=== PATIENT | female | born 1995 | race Caucasian/White ===

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

== ENCOUNTER → 2017-03-30 | Outpatient (CLI) | payer OTHER ==
[~2017-03-30] MED LIST changes: +ADVI200C5 PO; +BACT800T5 PO; +LEVO25TA5 PO; +ONDA4TAB6 PO; +PROZ20CA11 PO
[2017-03-30 14:19] LABS: BASO # 0.1 K/mm3 (0.0-0.2); BASO % 0.9 % (0.0-1.0); EOS % 0.4 % (0.0-3.0); LARGE UNSTAINED CELL # 0.1 K/mm3 (0.0-0.4); LARGE UNSTAINED CELL % 1.1 % (0.0-4.0); LYMPH # 1.8 K/mm3 (1.5-6.5); LYMPH % 15.7 % (24.0-44.0); MEAN CORPUSCULAR HEMOGLOBIN 29.2 pg (27.0-33.0); MEAN CORPUSCULAR HGB CONC 34.2 g/dl (32.0-36.5); MEAN CORPUSCULAR VOLUME 85.5 fl (80.0-96.0); MONO # 0.4 K/mm3 (0.0-0.8); NEUTROPHILS # 8.4 K/mm3 (1.8-7.7); NEUTROPHILS % 77.7 % (36.0-66.0); PLATELET COUNT, AUTOMATED 270 k/mm3 (150-450); RED CELL DISTRIBUTION WIDTH 13.9 % (11.5-14.5); WHITE BLOOD COUNT 10.8 K/mm3 (4.0-10.0)
[2017-03-31 11:02] LABS: HBsAg Prenatal NEGATIVE (NEGATIVE)
== END ==
LOC: M SMT 09:53
PROVIDERS: ATTEND Advanced Practice Midwife
DX: Z36 Encounter for antenatal screening of mother (principal); Z3A.00 Weeks of gestation of pregnancy not specified

== ENCOUNTER → 2017-05-22 | Outpatient (CLI) | payer OTHER ==
--- NOTE | 2017-05-23 02:11 | REP ---
Clinical: Anatomical evaluation. Comparison: None . Findings: Examination demonstrates a single live intrauterine in breech presentation. motion is identified by technologist. Placenta is noted anteriorly and grade zero without evidence for placenta previa or abruption. Amniotic fluid volume is normal. Cervix measures 4.7 cm in length and appears closed. No evidence for nuchal cord. Gestational age by LMP 18 weeks 4 days with ROSI 10/19/2017 . Gestational age by current measurements 17 weeks 3 days with ROSI 10/27/2017 . FHR equals 139 beats per minute. BPD 3.8 cm 17 weeks 4 days HC 14.5 cm 17 weeks 5 days AC 11.3 cm 17 weeks 1 day FL 2.3 cm 17 weeks 0 days HL 2.6 cm 18 weeks 1 day HC/AC ratio 1.28 Estimated weight 182 grams (<3% based on age by LMP). Anatomical assessment demonstrates normal structures including choroid plexus, cavum, facial features, lungs, diaphragm, stomach, and kidneys/bladder. Limited evaluation of the cranium, posterior fossa, heart/ventricular outflow tracts, three-vessel cord/insertion, spine, extremities. Impression: Single live intrauterine in breech presentation. Estimated weight is less than expected based on age by LMP. Anatomical limitations as described above are noted. Follow-up examination at 19-21 weeks is recommended. Signed by Gibran Carpenter MD 05/23/2017 02:03 A
== END ==
LOC: M RAD 13:32
PROVIDERS: ATTEND Specialist
DX: Z36.2 Encounter for other antenatal screening follow-up (principal)

== ENCOUNTER 2017-05-29 14:22 | Emergency (ER) | payer OTHER ==
[~2017-05-29] VITALS: Ht 172.7 cm; Wt 109.1 kg
[~2017-05-29 14:22] MED LIST changes: -BACT800T5 PO; -ONDA4TAB6 PO
[2017-05-29 14:23] VITALS: BP 138/86
[2017-05-29] MEDS ORDERED: BACT800T5 PO (17:34)
[2017-05-29] MEDS ORDERED: ONDA4TAB6 PO (17:36)
== END 2017-05-29 14:36 | disposition admitted as inpatient to this hospital (09) ==
LOC: M ED 14:22
DX: O21.9 Vomiting of pregnancy, unspecified (principal)

== ENCOUNTER 2017-05-29 15:07 | Emergency (ER) | payer OTHER ==
[~2017-05-29] VITALS: Ht 172.7 cm; Wt 109.1 kg
[2017-05-29 15:16] VITALS: BP 138/92
[2017-05-29] MEDS ORDERED: BACT800T5 PO (17:34)
[2017-05-29] MEDS ORDERED: ONDA4TAB6 PO (17:36)
[2017-05-29] MEDS: ONDANSETRON 4 MG TAB (S0181) PO ONE (17:51)
[2017-05-29] MEDS: BACTRIM 160MG/800MG DS TAB PO ONE (17:51)
--- NOTE | 2017-05-30 05:44 | ED PDOC ---
Post-Departure Follow-Up I spoke to Karol ED nurse and asked her to call the patient and instruct her the prescription for Bactrim DS is to be discontinued and, if it has been filled, discarded. A prescription for nitrofurantoin will be started instead. [facility] May 30, 2017 05:44
--- NOTE | 2017-05-30 08:40 | ED PDOC ---
Post-Departure Follow-Up I contacted [facility] and asked the pharmacist to d/c the rx for Bactrim DS and sheconfirmed the order is cancelled. I spoke to the patient via telephone to advise her that the rx for Bactrim was discontinuedand replacedw/nitrofurantoin because Bactrim is not the best choice for UTI in a woman. Patient she us feeling OK and agreed to call Dr. Barreto office today for follow up. I then spoke to Dr. Shen who indicated the dose of Bactrim DS should not be an issue, dont sweat it. Amelie Arnold PA-C May 30, 2017 08:39
== END 2017-05-29 17:55 | disposition home or self-care (01) ==
LOC: M ED 15:07
DX: O23.42 Unspecified infection of urinary tract in pregnancy, second trimester (principal); Z3A.19 19 weeks gestation of pregnancy

== ENCOUNTER → 2017-05-31 | Outpatient (REF) | payer OTHER ==
[~2017-05-31] MED LIST changes: +BACT800T5 PO; +ONDA4TAB6 PO
== END ==
LOC: M LAB REF 15:53
PROVIDERS: ATTEND Emergency Medicine
DX: R19.7 Diarrhea, unspecified (principal)

== ENCOUNTER → 2017-06-09 | Outpatient (CLI) | payer OTHER ==
--- NOTE | 2017-06-09 11:49 | REP ---
OBSTETRIC SONOGRAPHY: HISTORY: Supervision of for anatomy. FINDINGS: Scanning through the gravid uterus demonstrates a viable single intrauterine gestation in a cephalic lie. motion is observed and heart rate is recorder 163 beats per minute. An anterior grade 0 placenta is seen without evidence of previa or abruption. Amniotic fluid is subjectively normal. Closed cervical length is 3.7 cm viewed transabdominally. No extrauterine abnormality is observed. There has been appropriate interval growth. No anomaly is seen. The following anatomic structures are less than optimally seen due to position: Facial profile, four-chamber heart and right and left ventricular outflow tract views. The following additional anatomic structures are identified and felt to be sonographically unremarkable: cranium, choroid plexus, cavum, cerebellum and posterior fossa, lungs, diaphragm, left-sided stomach, abdominal wall cord insertion, three-vessel umbilical cord, kidneys and bladder, spine, upper and lower extremities. Biometry Chart: BPD 4.7 cm = 20 weeks 1 day HC 17.9 cm = 20 weeks 2 days AC 15.3 cm = 20 weeks 3 days FL 3.3 cm = 20 weeks 3 days HL 3.2 cm = 20 weeks 4 days HC/AC ratio normal 1.17. Cephalic index normal 0.72. Estimated weight 354 grams, 0 pounds 12 ounces, 26th percentile for 21 weeks 1 day. IMPRESSION: Viable single intrauterine gestation at 20 weeks 3 days by today's composite sonographic criteria. Expected gestational age estimate based on prior sonography is 20 weeks 0 days. ROSI by prior sonography October 27, 2017. There is appropriate interval growth. Cardiac views and facial profile views less than optimally seen today. Signed by Tello Holloway MD 06/09/2017 02:55 P
== END ==
LOC: M RAD 09:11
PROVIDERS: ATTEND Specialist
DX: Z36.89 Encounter for other specified antenatal screening (principal); Z3A.20 20 weeks gestation of pregnancy

== ENCOUNTER → 2017-07-05 | Outpatient (CLI) | payer OTHER ==
--- NOTE | 2017-07-05 15:07 | REP ---
OB ULTRASOUND: Real-time sonographic evaluation of the gravid uterus is performed. There is a single intrauterine gestation with the estimated gestational age 24 weeks 6 days with EDC 10/19/2017. Today's measurements indicate somewhat less than expected growth. Biometry and Growth: BPD 56 mm = 23 weeks 0 days, less than 5th percentile HC 212 mm = 23 weeks 2 days, less than 5th percentile AC 183 mm = 23 weeks 1 day, 11th percentile FL 41 mm = 23 weeks 2 days, 11th percentile HC/AC ratio 1.16 within normal range. Estimated weight 572 grams, less than 3rd percentile. SEEN/GROSSLY UNREMARKABLE Lateral ventricles Yes Posterior fossa Yes Upper lip Yes Four-chamber heart Yes LVOT Yes RVOT Yes Stomach Yes Cord insertion Yes Three vessel cord Yes Kidneys Yes Bladder Yes Spine No Cervical length: Closed and measures 4.2 cm in length. heart rate: 141 beats per minute. position: Breech. Placenta: Anterior and grade 0 with no previa or abruption. Amniotic fluid: Within normal limits. Signed by Nemesio Shaikh MD 07/05/2017 03:19 P
== END ==
LOC: M RAD 12:19
PROVIDERS: ATTEND Specialist
DX: Z34.82 Encounter for supervision of other normal pregnancy, second trimester (principal)

== ENCOUNTER → 2017-07-25 | Outpatient (CLI) | payer OTHER ==
[2017-07-25 17:58] LABS: BASO # 0.1 10^3/uL (0.0-0.2); BASO % 0.6 % (0.0-1.0); EOS # 0.1 10^3/uL (0.0-0.50); EOS % 0.4 % (0.0-3.0); IMMATURE GRANULOCYTE % 0.9 % (0-0); LYMPH # 2.1 10^3/uL (1.5-6.5); LYMPH % 16.3 % (24.0-44.0); MEAN CORPUSCULAR HGB CONC 32.5 g/dl (32.0-36.5); MEAN CORPUSCULAR VOLUME 89.3 fl (80.0-96.0); MONO # 0.7 10^3/uL (0.0-0.8); MONO % 5.7 % (0.0-5.0); NEUTROPHILS # 9.8 10^3/uL (1.8-7.7); NEUTROPHILS % 76.1 % (36.0-66.0); PLATELET COUNT, AUTOMATED 262 10^3/uL (150-450); RED CELL DISTRIBUTION WIDTH 13.7 % (11.5-14.5); WHITE BLOOD COUNT 12.9 10^3/uL (4.0-10.0)
== END ==
LOC: M SMT 11:07
PROVIDERS: ATTEND Specialist
DX: Z34.82 Encounter for supervision of other normal pregnancy, second trimester (principal)

== ENCOUNTER → 2017-08-03 | Outpatient (CLI) | payer OTHER ==
--- NOTE | 2017-08-03 17:08 | REP ---
Obstetric sonography: History: Size less than dates. growth study. Comparison exam July 05, 2017. Findings: Scanning through the gravid uterus demonstrates a viable single intrauterine gestation in a cephalic lie. heart rate is recorded at 136 beats per minute. An anterior placenta is seen without evidence of previa. Closed cervical length measured transabdominally is 3.4 cm. Amniotic fluid is subjectively normal. YVONNE is normal at 13.7 cm. The S/D ratio in the umbilical cord artery by Doppler is normal at 3.45. No anomaly is seen. The following anatomic structures are again identified and felt to be unremarkable: cranium, choroid plexus, cavum, cerebellum and posterior fossa, face and profile, lungs, four-chamber heart with left and right ventricular outflow tract views, diaphragm, left-sided stomach, three-vessel cord, kidneys and bladder, upper extremities. Biometry chart: BPD 7.1 cm = 28 weeks 3 days HC 26.3 cm = 28 weeks 4 days AC 23.3 cm = 27 weeks 4 days FL 5.1 cm = 27 weeks 3 days CD 3.3 cm = 28 weeks 0 days HC/AC ratio normal 1.1. Cephalic index normal 0.75. Estimated weight 1109 grams, 2 pounds 7 ounces, 13th percentile for 29 weeks 0 days. Impression: Viable single intrauterine gestation at 27 weeks 4 days by today's composite sonographic criteria. Expected gestational age estimate based on prior sonography is 29 weeks 0 days. ROSI by prior sonography October 19, 2017. Signed by Tello Holloway MD 08/03/2017 05:13 P
== END ==
LOC: M SMT 08:21
PROVIDERS: ATTEND Specialist
DX: O36.59 Maternal care for other known or suspected poor fetal growth (principal); Z3A.27 27 weeks gestation of pregnancy

== ENCOUNTER → 2017-09-06 | Outpatient (CLI) | payer MEDICAID | LOC: M SMT 11:10 | DX: O36.5933 Maternal care for other known or suspected poor fetal growth, third trimester, fetus 3 (principal); Z3A.00 Weeks of gestation of pregnancy not specified | CPT/HCPCS: 76816 ==

== ENCOUNTER 2017-09-23 19:21 | Inpatient (IN) | payer OTHER, MEDICAID ==
[2017-09-23] MEDS ORDERED: LR 1,000 ML IV (22:51)
[2017-09-23] MEDS: LACTATED RINGER'S 1000 ML IV (23:30)
[2017-09-23 23:31] LABS: HEMATOCRIT 37.2 % (36.0-47.0); HEMOGLOBIN 12.1 g/dl (12.0-16.0); MEAN CORPUSCULAR HEMOGLOBIN 27.1 pg (27.0-33.0); MEAN CORPUSCULAR HGB CONC 32.5 g/dl (32.0-36.5); MEAN CORPUSCULAR VOLUME 83.2 fl (80.0-96.0); PLATELET COUNT, AUTOMATED 235 10^3/uL (150-450); RED BLOOD COUNT 4.47 10^6/uL (4.00-5.40); RED CELL DISTRIBUTION WIDTH 13.4 % (11.5-14.5); WHITE BLOOD COUNT 14.3 10^3/uL (4.0-10.0)
[2017-09-24] MEDS: BICITRA 30ML SOLN UDC PO
[2017-09-24] MEDS ORDERED: OXYTOCIN INJ 10 UNITS/ML VIAL (J2590) As Ordered ×2 (00:21)
[2017-09-24] MEDS ORDERED: MORPHINE PRES-FREE INJ 10 MG/10 ML VIAL (J2274) As Ordered (00:21)
[2017-09-24] MEDS ORDERED: ONDANSETRON 4MG/2ML VIAL (J2405) IV ×2 (00:42→02:15)
[2017-09-24] MEDS ORDERED: NALOXONE INJ 0.4 MG/1 ML VIAL (J2310) IV ×2 (00:42)
[2017-09-24] MEDS ORDERED: METOCLOPRAMIDE INJ 10MG/2ML VIAL (J2765) IV (00:42)
[2017-09-24] MEDS ORDERED: ONDANSETRON 4MG/2ML VIAL (J2405) As Ordered ×2 (00:47→01:10)
[2017-09-24] MEDS ORDERED: KETOROLAC 60 MG/2 ML VIAL (J1885) As Ordered (01:20)
[2017-09-24] MEDS ORDERED: fentaNYL 100 MCG/2 ML INJECTION (J3010) As Ordered (01:26)
[2017-09-24] MEDS: LR 1,000 ML IV ×3 (02:14→09:15)
[2017-09-24] MEDS ORDERED: MEASLES,MUMPS,RUBELLA VACCINE INJ (MMR-II) (90707) SC (02:15)
[2017-09-24] MEDS ORDERED: RHOGAM 300 MCG (1500 IU) INJ (J2790) IM (02:15)
[2017-09-24] MEDS ORDERED: MOM 30ML SUSPENSION UDC PO (02:15)
[2017-09-24] MEDS: OXYTOCIN DRIP 30 UNITS in APPROPRIATE DILUENT 1 EA IV (02:15)
[2017-09-24] MEDS ORDERED: diphenhydrAMINE INJ 50MG/ML VIAL (J1200) As Ordered (02:23)
[2017-09-24] MEDS ORDERED: fentaNYL 100 MCG/2 ML INJECTION (J3010) IV (02:30)
[2017-09-24] MEDS ORDERED: diphenhydrAMINE INJ 50MG/ML VIAL (J1200) IV (02:30)
[2017-09-24] MEDS ORDERED: NALBUPHINE HCL 10 MG/ML AMP (J2300) IV (02:30)
[2017-09-24] MEDS ORDERED: PERCOCET 5MG/325MG TAB PO (02:30)
[2017-09-24] MEDS ORDERED: ePHEDrine SULFATE 25 MG/5 ML(5MG/ML) SYRINGE As Ordered (02:56)
[2017-09-24] MEDS ORDERED: PHENYLephrine HCL 500 MCG/5 ML (100MCG/ML) SYRINGE (J2370) As Ordered (02:57)
[2017-09-24] MEDS: DOCUSATE SODIUM 100 MG CAP PO ×2 (07:43→20:32)
[2017-09-24] MEDS: KETOROLAC 30 MG/ML VIAL (J1885) IV ×3 (07:43→18:58)
[2017-09-24] MEDS: PRENATAL VITAMINS CHEWABLE TABLET PO (07:43)
[2017-09-24] MEDS: NALBUPHINE HCL 10 MG/ML AMP (J2300) IV (08:07)
[2017-09-25] MEDS: KETOROLAC 30 MG/ML VIAL (J1885) IV (02:01)
[2017-09-25] MEDS: PERCOCET 5MG/325MG TAB PO ×3 (02:38→20:08)
[2017-09-25 06:41] LABS: HEMATOCRIT 31.8 % (36.0-47.0); HEMOGLOBIN 10.2 g/dl (12.0-16.0); MEAN CORPUSCULAR HEMOGLOBIN 26.9 pg (27.0-33.0); MEAN CORPUSCULAR HGB CONC 32.1 g/dl (32.0-36.5); MEAN CORPUSCULAR VOLUME 83.9 fl (80.0-96.0); PLATELET COUNT, AUTOMATED 189 10^3/uL (150-450); RED BLOOD COUNT 3.79 10^6/uL (4.00-5.40); RED CELL DISTRIBUTION WIDTH 13.8 % (11.5-14.5); WHITE BLOOD COUNT 11.1 10^3/uL (4.0-10.0)
[2017-09-25] MEDS: DOCUSATE SODIUM 100 MG CAP PO ×2 (09:29→20:06)
[2017-09-25] MEDS: PRENATAL VITAMINS CHEWABLE TABLET PO (09:29)
[2017-09-25] MEDS: IBUPROFEN 800 MG TAB PO ×2 (09:30→18:29)
[2017-09-26] MEDS: IBUPROFEN 800 MG TAB PO ×2 (00:40→08:37)
[2017-09-26] MEDS: PRENATAL VITAMINS CHEWABLE TABLET PO (08:37)
[2017-09-26] MEDS: DOCUSATE SODIUM 100 MG CAP PO (08:37)
[2017-09-26] MEDS: PERCOCET 5MG/325MG TAB PO (16:04)
== END 2017-09-26 17:25 | disposition home or self-care (01) | DRG 540 ==
LOC: M LDO 19:21 → M OBS 09-24 03:34 → M LDI 22:27
PROVIDERS: Obstetrics & Gynecology
PROC: 10D00Z1 Extraction of Products of Conception, Low, Open Approach (ICD-10-PCS; principal; 2017-09-24 00:36)
PROC: 0UB70ZZ Excision of Bilateral Fallopian Tubes, Open Approach (ICD-10-PCS; 2017-09-24 00:36)
DX: O60.13X0 Preterm labor second trimester with preterm delivery third trimester, not applicable or unspecified (principal); Z3A.36 36 weeks gestation of pregnancy; O34.211 Maternal care for low transverse scar from previous cesarean delivery; Z37.0 Single live birth; Z30.2 Encounter for sterilization

== ENCOUNTER → 2018-03-11 | Outpatient (REF) | payer OTHER ==
[2018-03-12 00:09] LABS: CHLAMYDIA DNA AMPLIFICATION NEGATIVE (NEGATIVE); GC DNA AMPLIFICATION NEGATIVE (NEGATIVE)
== END ==
LOC: M LAB REF 21:16
DX: Z11.3 Encounter for screening for infections with a predominantly sexual mode of transmission (principal)

== ENCOUNTER 2018-04-10 22:03 | Emergency (ER) | payer OTHER ==
[2018-04-10] MEDS: ONDANSETRON 4MG/2ML VIAL (J2405) IV ×2 (23:22)
[2018-04-10] MEDS: NS 1,000 ML IV ×2 (23:22)
[2018-04-10] MEDS: MORPHINE 4 MG/ML 1ML VIAL/SYRINGE (J2270) IV ×2 (23:23)
[2018-04-10 23:35] LABS: BASO # 0.1 10^3/uL (0.0-0.2); BASO % 0.8 % (0.0-1.0); EOS % 0.4 % (0.0-3.0); HEMATOCRIT 40.9 % (36.0-47.0); HEMOGLOBIN 12.8 g/dl (12.0-15.5); IMMATURE GRANULOCYTE % 0.3 % (0-3.0); LYMPH # 2.7 10^3/uL (1.5-6.5); LYMPH % 29.5 % (24.0-44.0); MEAN CORPUSCULAR HEMOGLOBIN 25.2 pg (27.0-33.0); MEAN CORPUSCULAR HGB CONC 31.3 g/dl (32.0-36.5); MEAN CORPUSCULAR VOLUME 80.7 fl (80.0-96.0); MONO # 0.8 10^3/uL (0.0-0.8); MONO % 8.3 % (0.0-5.0); NEUTROPHILS # 5.6 10^3/uL (1.8-7.7); NEUTROPHILS % 60.7 % (36.0-66.0); PLATELET COUNT, AUTOMATED 292 10^3/uL (150-450); RED BLOOD COUNT 5.07 10^6/uL (4.00-5.40); RED CELL DISTRIBUTION WIDTH 14.5 % (11.5-14.5); WHITE BLOOD COUNT 9.2 10^3/uL (4.0-10.0)
[2018-04-10 23:37] LABS: CONTROL LINE UCG INT CTR LINE PRESENT; KETONE, URINE AUTO RFX NEGATIVE (NEGATIVE); LEUKOCYTE ESTERASE UR AUTO RFX NEGATIVE (NEGATIVE); MUCUS, URINE RFX SMALL (NEGATIVE); NITRITE, URINE AUTO RFX NEGATIVE (NEGATIVE); RBC, URINE AUTO RFX 3 /HPF (0-3); SPECIFIC GRAVITY UR AUTO RFX 1.029 (1.002-1.035); SQUAM EPITHELIAL CELL UR AURFX 4 /HPF (0-6); URINE PREG TEST NEGATIVE (NEGATIVE); WBC, URINE AUTO RFX 1 /HPF (0-3)
[2018-04-10 23:57] LABS: ALBUMIN 3.9 GM/DL (3.2-5.2); ALBUMIN/GLOBULIN RATIO 1.03 (1.00-1.93); ALKALINE PHOSPHATASE 79 U/L (45-117); ALT/SGPT 27 U/L (12-78); ANION GAP 11 MEQ/L (8-16); AST/SGOT 14 U/L (7-37); BILIRUBIN,DIRECT < 0.1 MG/DL (0.0-0.2); BILIRUBIN,TOTAL 0.3 MG/DL (0.2-1.0); BLOOD UREA NITROGEN 22 MG/DL (7-18); CARBON DIOXIDE LEVEL 26 MEQ/L (21-32); CHLORIDE LEVEL 107 MEQ/L (98-107); CREATININE FOR GFR 0.77 MG/DL (0.55-1.30); GLOMERULAR FILTRATION RATE > 60.0 (>60); GLUCOSE, FASTING 89 MG/DL (70-100); LIPASE 78 U/L (73-393); POTASSIUM SERUM 4.2 MEQ/L (3.5-5.1); SODIUM LEVEL 144 MEQ/L (136-145); TOTAL PROTEIN 7.7 GM/DL (6.4-8.2)
[2018-04-11] MEDS ORDERED: ISOVUE-370 76% 100ML VIAL (Q9967) As Ordered ×2 (00:06)
== END 2018-04-11 01:38 | disposition home or self-care (01) ==
LOC: M ED 22:03
DX: R10.9 Unspecified abdominal pain (principal); Z98.890 Other specified postprocedural states
CPT/HCPCS: J2270

== ENCOUNTER → 2018-05-25 | Outpatient (REF) | payer OTHER ==
[2018-05-25 22:14] LABS: APPEARANCE, URINE HAZY (CLEAR); BACTERIA, URINE AUTO 1+ (NEGATIVE); BILIRUBIN, URINE AUTO NEGATIVE (NEGATIVE); BLOOD, URINE BLOOD NEGATIVE (NEGATIVE); COLOR, URINE AMBER (YELLOW); GLUCOSE, URINE (UA) AUTO NEGATIVE (NEGATIVE); KETONE, URINE AUTO TRACE mg/dL (NEGATIVE); LEUKOCYTE ESTERASE, URINE AUTO NEGATIVE (NEGATIVE); MUCUS, URINE SMALL (NEGATIVE); NITRITE, URINE AUTO NEGATIVE (NEGATIVE); PROTEIN, URINE AUTO 1+ mg/dL (NEGATIVE); RBC, URINE AUTO 2 /HPF (0-3); SPECIFIC GRAVITY URINE AUTO 1.032 (1.002-1.035); SQUAMOUS EPITHELIAL CELL UR AU 8 /HPF (0-6); WBC, URINE AUTO 3 /HPF (0-3)
== END ==
LOC: M LAB REF 21:43
DX: N39.0 Urinary tract infection, site not specified (principal)
CPT/HCPCS: 81001

== ENCOUNTER 2018-09-24 13:10 | Inpatient (IN) | payer OTHER, SELFPAY ==
[~2018-09-24] VITALS: Ht 172.7 cm; Wt 123.7 kg
[~2018-09-24 13:10] MED LIST changes: +IBUP1TAB7 PO
[2018-09-24] MEDS ORDERED: HYDROXAZINE (13:26)
[2018-09-24 13:56] LABS: BASO # 0.1 10^3/uL (0.0-0.2); BASO % 0.9 % (0.0-1.0); EOS # 0.1 10^3/uL (0.0-0.50); EOS % 0.7 % (0.0-3.0); HEMATOCRIT 41.3 % (36.0-47.0); HEMOGLOBIN 13.2 g/dl (12.0-15.5); LYMPH # 2.3 10^3/uL (1.5-6.5); LYMPH % 30.4 % (24.0-44.0); MEAN CORPUSCULAR HEMOGLOBIN 26.8 pg (27.0-33.0); MEAN CORPUSCULAR VOLUME 83.8 fl (80.0-96.0); MONO # 0.6 10^3/uL (0.0-0.8); MONO % 7.8 % (0.0-5.0); NEUTROPHILS # 4.6 10^3/uL (1.8-7.7); NEUTROPHILS % 59.9 % (36.0-66.0); PLATELET COUNT, AUTOMATED 279 10^3/uL (150-450); RED BLOOD COUNT 4.93 10^6/uL (4.00-5.40); WHITE BLOOD COUNT 7.6 10^3/uL (4.0-10.0)
[2018-09-24 14:23] LABS: AMPHETAMINES LEVEL URINE NEGATIVE (NEGATIVE); BARBITURATES URINE NEGATIVE (NEGATIVE); BENZODIAZEPINES URINE NEGATIVE (NEGATIVE); CANNABINOIDS URINE POSITIVE (NEGATIVE); COCAINE METABOLITE URINE NEGATIVE (NEGATIVE); METHADONE URINE NEGATIVE (NEGATIVE); OPIATES URINE NEGATIVE (NEGATIVE); PHENCYCLIDINE URINE NEGATIVE (NEGATIVE)
[2018-09-24 14:33] LABS: HCG, SERUM QUALITATIVE NEGATIVE (NEGATIVE)
[2018-09-24 14:41] LABS: ALBUMIN 4.1 GM/DL (3.2-5.2); ALT/SGPT 31 U/L (12-78); BILIRUBIN,DIRECT < 0.1 MG/DL (0.0-0.2); BILIRUBIN,TOTAL 0.3 MG/DL (0.2-1.0); BLOOD UREA NITROGEN 16 MG/DL (7-18); CALCIUM LEVEL 8.5 MG/DL (8.5-10.1); CARBON DIOXIDE LEVEL 26 MEQ/L (21-32); CHLORIDE LEVEL 107 MEQ/L (98-107); CPK CREATINE PHOSPHOKINASE 89 U/L (26-192); CREATININE FOR GFR 0.66 MG/DL (0.55-1.30); GLOMERULAR FILTRATION RATE > 60.0 (>60); GLUCOSE, FASTING 84 MG/DL (70-100); POTASSIUM SERUM 4.2 MEQ/L (3.5-5.1); SALICYLATE LEVEL < 1.7 MG/DL (5.0-30.0); SODIUM LEVEL 140 MEQ/L (136-145); TOTAL PROTEIN 7.6 GM/DL (6.4-8.2)
[2018-09-24 14:42] LABS: ACETAMINOPHEN LEVEL < 2.0 UG/ML (10.0-30.0); ETHYL ALCOHOL (ETHANOL) < 0.003 % (0.000-0.010)
[2018-09-24] MEDS ORDERED: MAALOX 30 ML SUSP *UDC PO PRN (17:00)
[2018-09-24] MEDS ORDERED: MOM 30ML SUSPENSION UDC PO PRN (17:00)
[2018-09-24] MEDS ORDERED: ACETAMINOPHEN TAB 650MG DOSE (2X325MG) PO PRN (17:00)
[2018-09-24 21:18] VITALS: BP 139/78
[2018-09-24] MEDS: traZODone 50 MG TAB PO PRN (23:03)
[2018-09-25 06:00] VITALS: BP 108/69
[2018-09-25 06:36] VITALS: BP 108/69
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
[2018-09-25 18:00] VITALS: BP 141/75
--- NOTE | 2018-09-25 18:53 | ECGEPIP ---
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
[2018-09-25] MEDS: traZODone 50 MG TAB PO PRN (22:19)
[2018-09-26 06:34] VITALS: BP 125/69
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
[2018-09-26 18:00] VITALS: BP 146/82
[2018-09-26] MEDS: traZODone 50 MG TAB PO PRN (22:37)
[2018-09-27 06:40] VITALS: BP 112/57
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
[2018-09-27 18:00] VITALS: BP 153/67
[2018-09-28 06:00] VITALS: BP 137/86
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
[2018-09-28] MEDS ORDERED: ARIP5TA PO (09:07)
[2018-09-28] MEDS ORDERED: TRAZO50TA PO (09:07)
== END 2018-09-28 11:15 | disposition home or self-care (01) | DRG 753 ==
LOC: M ED 13:10 → M ED INP 16:48 → M PSY 21:06
PROVIDERS: ADMIT Psychiatry & Neurology Psychiatry; ATTEND Psychiatry & Neurology Psychiatry
DX: F39 Unspecified mood [affective] disorder (principal); F41.9 Anxiety disorder, unspecified; T43.592A Poisoning by other antipsychotics and neuroleptics, intentional self-harm, initial encounter; S61.512A Laceration without foreign body of left wrist, initial encounter; X78.1XXA Intentional self-harm by knife, initial encounter; Y92.009 Unspecified place in unspecified non-institutional (private) residence as the place of occurrence of the external cause; F60.3 Borderline personality disorder

== ENCOUNTER → 2018-11-27 | Outpatient (REF) | payer OTHER ==
[~2018-11-27] MED LIST changes: +ARIP1TAB6 PO; +HYDROXAZINE; +IBUP600T42 PO; -IBUP60TA PO; +TRAZO50TA PO
== END ==
LOC: M SFHCADAM 10:23
PROVIDERS: ATTEND Physician Assistant Medical
DX: F51.04 Psychophysiologic insomnia (principal); F31.32 Bipolar disorder, current episode depressed, moderate; E66.01 Morbid (severe) obesity due to excess calories

== ENCOUNTER → 2020-01-29 | Outpatient (REF) | payer OTHER ==
[~2020-01-29] MED LIST changes: +TRAZ1TAB10 PO; -TRAZO50TA PO
[2020-01-29 22:37] LABS: CHLAMYDIA DNA AMPLIFICATION NEGATIVE (NEGATIVE); GC DNA AMPLIFICATION POSITIVE (NEGATIVE)
== END ==
LOC: M LAB REF 21:02
PROVIDERS: ATTEND Physician Assistant Medical
DX: A64 Unspecified sexually transmitted disease (principal)

== ENCOUNTER → 2020-03-18 | Outpatient (REF) | payer OTHER ==
[~2020-03-18] MED LIST changes: +FLOM0.4C39 PO; +KETO10TAB PO; +MACR100C43 PO; +TRIA1OI
[2020-05-02 11:47] LABS: HEMOGLOBIN A1c 5.6 %
== END ==
LOC: M LABDRWAD 08:33
PROVIDERS: ATTEND Surgery
DX: Z86.39 Personal history of other endocrine, nutritional and metabolic disease (principal)

== ENCOUNTER 2020-05-21 10:35 | Emergency (ER) | payer OTHER ==
[~2020-05-21] VITALS: Ht 172.7 cm; Wt 127.7 kg
[~2020-05-21 10:35] MED LIST changes: -FLOM0.4C39 PO; -KETO10TAB PO; -MACR100C43 PO; -TRIA1OI
[2020-05-21] MEDS ORDERED: TRIA1OI (10:46)
[2020-05-21 11:09] LABS: BASO # 0.1 10^3/uL (0.0-0.2); BASO % 1.1 % (0.0-1.0); EOS % 0.7 % (0.0-3.0); HEMATOCRIT 43.3 % (36.0-47.0); HEMOGLOBIN 13.8 g/dl (12.0-15.5); LYMPH # 1.7 10^3/uL (1.5-5.0); MEAN CORPUSCULAR HEMOGLOBIN 27.3 pg (27.0-33.0); MEAN CORPUSCULAR HGB CONC 31.9 g/dl (32.0-36.5); MEAN CORPUSCULAR VOLUME 85.7 fl (80.0-96.0); MONO # 0.5 10^3/uL (0.0-0.8); NEUTROPHILS # 3.4 10^3/uL (1.5-8.5); NEUTROPHILS % 59.7 % (36.0-66.0); PLATELET COUNT, AUTOMATED 275 10^3/uL (150-450); RED BLOOD COUNT 5.05 10^6/uL (4.00-5.40); WHITE BLOOD COUNT 5.6 10^3/uL (4.0-10.0)
--- NOTE | 2020-05-21 11:47 | REPVR ---
PROCEDURE INFORMATION: Exam: CT Abdomen And Pelvis Without Contrast Exam date and time: 05/21/2020 10:51 AM Age: 25 years old Clinical indication: Abdominal pain; Additional info: Right lower quadrant pain TECHNIQUE: Imaging protocol: Computed tomography of the abdomen and pelvis without contrast. Radiation optimization: All CT scans at this facility use at least one of these dose optimization techniques: automated exposure control; mA and/or kV adjustment per patient size (includes targeted exams where dose is matched to clinical indication); or iterative reconstruction. COMPARISON: CT ABD/PEL W/IV CONTRAST ONLY 04/11/2018 12:05 AM FINDINGS: Liver: Normal. No mass. Gallbladder and bile ducts: Normal. No calcified stones. No ductal dilation. Pancreas: Normal. No ductal dilation. Spleen: Normal. No splenomegaly. Adrenals: Normal. No mass. Kidneys and ureters: There is moderate right-sided hydronephrosis. There is a 3 mm obstructing ureterovesical junction calculus. Underlying pyelonephritis cannot be excluded based on this exam. There are bilateral nonobstructing intrarenal calcifications. Stomach and bowel: Unremarkable. No obstruction. No mucosal thickening. Appendix: A normal appendix is identified. Intraperitoneal space: There is a small amount of free pelvic fluid. Vasculature: Unremarkable. No abdominal aortic aneurysm. Lymph nodes: Unremarkable. No enlarged lymph nodes. Urinary bladder: Unremarkable as visualized. Reproductive: Unremarkable as visualized. Bones/joints: Unremarkable. No acute fracture. Soft tissues: Unremarkable. IMPRESSION: There is moderate right-sided hydronephrosis. There is a 3 mm obstructing ureterovesical junction calculus. Underlying pyelonephritis cannot be excluded based on this exam. Electronically signed by: Lazaro Pathak On 05/21/2020 11:47:28 AM
[2020-05-21] MEDS ORDERED: FLOM0.4C39 PO (11:51)
[2020-05-21] MEDS ORDERED: KETO10TAB PO (11:51)
[2020-05-21] MEDS ORDERED: KETOROLAC 30 MG/ML 1ML VIAL IV ONE (12:00)
[2020-05-21] MEDS ORDERED: MACR100C43 PO (12:37)
[2020-05-21 12:56] VITALS: BP 129/74
== END 2020-05-21 13:01 | disposition home or self-care (01) ==
LOC: M ED 10:35 → EDBD 10:35 → M ED 13:01
DX: N20.1 Calculus of ureter (principal); F31.9 Bipolar disorder, unspecified; E66.9 Obesity, unspecified
CPT/HCPCS: 36415; 74176; 80047; 81001; 84702; 85025; 96374; 99284; J1885

== ENCOUNTER → 2020-06-05 | Outpatient (REF) | payer OTHER ==
[~2020-06-05] MED LIST changes: +FLOM0.4C39 PO; +KETO10TAB PO; +MACR100C43 PO; +TRIA1OI
[2020-06-05 18:53] LABS: APPEARANCE, URINE CLEAR (CLEAR); BACTERIA, URINE AUTO NEGATIVE (NEGATIVE); BILIRUBIN, URINE AUTO NEGATIVE (NEGATIVE); BLOOD, URINE BLOOD NEGATIVE (NEGATIVE); COLOR, URINE YELLOW (YELLOW); GLUCOSE, URINE (UA) AUTO NEGATIVE (NEGATIVE); KETONE, URINE AUTO NEGATIVE (NEGATIVE); LEUKOCYTE ESTERASE, URINE AUTO NEGATIVE (NEGATIVE); MUCUS, URINE SMALL (NEGATIVE); NITRITE, URINE AUTO NEGATIVE (NEGATIVE); PROTEIN, URINE AUTO NEGATIVE (NEGATIVE); RBC, URINE AUTO 1 /HPF (0-3); SPECIFIC GRAVITY URINE AUTO 1.019 (1.002-1.035); SQUAMOUS EPITHELIAL CELL UR AU 1 /HPF (0-6); UROBILINOGEN, URINE AUTO 0.2 mg/dL (0.0-2.0); WBC, URINE AUTO 1 /HPF (0-3)
== END ==
LOC: M SMT 17:24
PROVIDERS: ATTEND Nurse Practitioner Women's Health
DX: N13.2 Hydronephrosis with renal and ureteral calculous obstruction (principal)

== ENCOUNTER → 2020-10-06 | Outpatient (CLI) | payer OTHER ==
[2020-10-06 16:55] LABS: BASO # 0.1 10^3/uL (0.0-0.2); BASO % 1.1 % (0.0-1.0); EOS # 0.2 10^3/uL (0.0-0.5); EOS % 2.6 % (0.0-3.0); HEMATOCRIT 42.4 % (36.0-47.0); HEMOGLOBIN 13.5 g/dl (12.0-15.5); LYMPH # 2.4 10^3/uL (1.5-5.0); LYMPH % 39.2 % (24.0-44.0); MEAN CORPUSCULAR HEMOGLOBIN 27.7 pg (27.0-33.0); MEAN CORPUSCULAR HGB CONC 31.8 g/dl (32.0-36.5); MEAN CORPUSCULAR VOLUME 87.1 fl (80.0-96.0); MONO # 0.6 10^3/uL (0.0-0.8); NEUTROPHILS # 2.9 10^3/uL (1.5-8.5); NEUTROPHILS % 46.9 % (36.0-66.0); PLATELET COUNT, AUTOMATED 207 10^3/uL (150-450); RED BLOOD COUNT 4.87 10^6/uL (4.00-5.40); WHITE BLOOD COUNT 6.2 10^3/uL (4.0-10.0)
[2020-10-06 16:57] LABS: HEMATOCRIT 42.4 % (36.0-47.0)
[2020-10-06 17:24] LABS: ALT/SGPT 45 U/L (12-78); BILIRUBIN,TOTAL 0.6 MG/DL (0.2-1.0); BLOOD UREA NITROGEN 11 MG/DL (7-18); CALCIUM LEVEL 8.7 MG/DL (8.5-10.1); CARBON DIOXIDE LEVEL 26 MEQ/L (21-32); CHLORIDE LEVEL 107 MEQ/L (98-107); FERRITIN 14 NG/ML (8-252); GLOMERULAR FILTRATION RATE > 60.0 (>60); GLUCOSE, FASTING 80 MG/DL (70-100); IRON (FE) 39 UG/DL (50-170); PERCENT SATURATION 10.8 % (13.2-45.0); PHOSPHORUS LEVEL 3.6 MG/DL (2.5-4.9); POTASSIUM SERUM 3.7 MEQ/L (3.5-5.1); SODIUM LEVEL 141 MEQ/L (136-145); TOTAL IRON BINDING CAPACITY 362 UG/DL (250-450); TOTAL PROTEIN 6.7 GM/DL (6.4-8.2)
[2020-10-06 17:33] LABS: VITAMIN B12 LEVEL 1378 PG/ML (247-911)
== END ==
LOC: M LAB 16:19
PROVIDERS: ATTEND Surgery
DX: K91.2 Postsurgical malabsorption, not elsewhere classified (principal); E55.9 Vitamin D deficiency, unspecified; Z98.84 Bariatric surgery status

== ENCOUNTER → 2020-10-08 | Outpatient (REF) | payer OTHER ==
[2020-10-08 21:02] LABS: HEPATITIS A ANTIBODY IGM NEGATIVE (NEGATIVE); HEPATITIS B CORE ANTIBODY IGM NEGATIVE (NEGATIVE); HEPATITIS B SURFACE ANTIGEN NEGATIVE (NEGATIVE); HEPATITIS C VIRUS ABY INDEX < 0.0 INDEX (<0.8); HIV 1&2 SCREEN CENTAUR NEGATIVE (NEGATIVE)
== END ==
LOC: M PLALAB 15:23
PROVIDERS: ATTEND Nurse Practitioner Women's Health
DX: Z11.3 Encounter for screening for infections with a predominantly sexual mode of transmission (principal)

== ENCOUNTER → 2020-10-08 | Outpatient (REF) | payer OTHER | LOC: M SFHCWAGY 18:59 | PROVIDERS: ATTEND Nurse Practitioner Women's Health | DX: Z11.3 Encounter for screening for infections with a predominantly sexual mode of transmission (principal) ==

== ENCOUNTER → 2020-12-30 | Outpatient (CLI) | payer SELFPAY | LOC: M LABSMTC 13:43 | PROVIDERS: ATTEND Pediatrics | DX: Z11.52 Encounter for screening for COVID-19 (principal) ==

== ENCOUNTER 2021-01-13 06:49 | Emergency (ER) | payer OTHER, SELFPAY ==
[~2021-01-13] VITALS: Ht 172.7 cm; Wt 92.7 kg
[2021-01-13] MEDS ORDERED: MORPHINE 4 MG/ML 1ML VIAL/SYRINGE (J2270) IV PRN (07:35)
[2021-01-13] MEDS ORDERED: ONDANSETRON 4MG/2ML VIAL IV ONE (07:35)
[2021-01-13] MEDS ORDERED: NS 1,000 ML IV SCH (07:35)
[2021-01-13 07:51] LABS: BASO # 0.1 10^3/uL (0.0-0.2); BASO % 1.1 % (0.0-1.0); EOS # 0.1 10^3/uL (0.0-0.5); EOS % 0.9 % (0.0-3.0); HEMATOCRIT 44.5 % (36.0-47.0); HEMOGLOBIN 14.4 g/dl (12.0-15.5); LYMPH # 2.8 10^3/uL (1.5-5.0); MEAN CORPUSCULAR HEMOGLOBIN 28.6 pg (27.0-33.0); MEAN CORPUSCULAR HGB CONC 32.4 g/dl (32.0-36.5); MEAN CORPUSCULAR VOLUME 88.5 fl (80.0-96.0); MONO # 0.7 10^3/uL (0.0-0.8); NEUTROPHILS # 3.9 10^3/uL (1.5-8.5); NEUTROPHILS % 51.7 % (36.0-66.0); PLATELET COUNT, AUTOMATED 257 10^3/uL (150-450); RED BLOOD COUNT 5.03 10^6/uL (4.00-5.40); WHITE BLOOD COUNT 7.6 10^3/uL (4.0-10.0)
[2021-01-13 08:20] LABS: ALBUMIN 4.1 GM/DL (3.2-5.2); BILIRUBIN,DIRECT 0.2 MG/DL (0.0-0.2); BILIRUBIN,TOTAL 0.7 MG/DL (0.2-1.0)
[2021-01-13] MEDS ORDERED: POTASSIUM CHLORIDE 10 MEQ SR TABLET PO ONE (08:20)
--- NOTE | 2021-01-13 08:38 | REP ---
INDICATION: left FP/hematuria COMPARISON: 05/21/2020 TECHNIQUE: Axial noncontrast images from the lung bases to the pubic symphysis with coronal and sagittal reformations. This CT examination was performed using the following dose reduction techniques: Automated exposure control, adjustment of mA and/or kv according to the patient's size, and use of iterative reconstruction technique. FINDINGS: Edematous enlargement to the left kidney with mild perinephric stranding and hydronephrosis secondary to a 3 mm calculus at the proximal ureter (series 201; image 69). Right kidney/ureter and bladder appear normal. Liver, spleen, pancreas, gallbladder, and bilateral adrenal glands are normal. Evidence for prior gastric bypass surgery. No bowel obstruction or acute inflammatory process. Pelvis demonstrates normal bladder and age-appropriate uterus/adnexa. No pelvic fluid or ascites. No free air. No adenopathy. Stable small fat containing periumbilical hernia. Musculoskeletal structures are intact. IMPRESSION: Acute left-sided obstructive uropathy with a 3 mm calculus in the proximal ureter. <Electronically signed by Gibran Carpenter > 01/13/21 [id number]
[2021-01-13] MEDS ORDERED: PERC5TAB12 PO (08:57)
[2021-01-13] MEDS ORDERED: FLOM0.4C39 PO (08:58)
[2021-01-13 09:05] VITALS: BP 117/81
== END 2021-01-13 09:10 | disposition home or self-care (01) ==
LOC: M ED 06:49
DX: N20.1 Calculus of ureter (principal); E87.6 Hypokalemia; I10 Essential (primary) hypertension; E03.9 Hypothyroidism, unspecified; J45.909 Unspecified asthma, uncomplicated; Z79.899 Other long term (current) drug therapy; Z98.890 Other specified postprocedural states; Z98.84 Bariatric surgery status; Z84.1 Family history of disorders of kidney and ureter
CPT/HCPCS: 36415; 74176; 80047; 80076; 81001; 83690; 84702; 85025; 87088; 96361; 96374; 96375; 99284; J2270; J2405

== ENCOUNTER → 2021-01-21 | Outpatient (REF) | payer OTHER ==
[~2021-01-21] MED LIST changes: +PERC5TAB12 PO
[2021-01-21 18:28] LABS: AMORPHOUS SEDIMENT SMALL (NEGATIVE); APPEARANCE, URINE TURBID (CLEAR); BACTERIA, URINE AUTO NEGATIVE (NEGATIVE); BILIRUBIN, URINE AUTO NEGATIVE (NEGATIVE); BLOOD, URINE BLOOD NEGATIVE (NEGATIVE); CALCIUM OXALATE CRYSTALS SMALL; COLOR, URINE YELLOW (YELLOW); GLUCOSE, URINE (UA) AUTO NEGATIVE (NEGATIVE); KETONE, URINE AUTO NEGATIVE (NEGATIVE); LEUKOCYTE ESTERASE, URINE AUTO NEGATIVE (NEGATIVE); MUCUS, URINE LARGE (NEGATIVE); NITRITE, URINE AUTO NEGATIVE (NEGATIVE); PROTEIN, URINE AUTO NEGATIVE (NEGATIVE); RBC, URINE AUTO 0 /HPF (0-3); SPECIFIC GRAVITY URINE AUTO 1.027 (1.002-1.035); SQUAMOUS EPITHELIAL CELL UR AU 6 /HPF (0-6); WBC, URINE AUTO 0 /HPF (0-3)
== END ==
LOC: M SMT 16:56
PROVIDERS: ATTEND Nurse Practitioner Women's Health
DX: N13.2 Hydronephrosis with renal and ureteral calculous obstruction (principal)

== ENCOUNTER → 2021-03-23 | Outpatient (CLI) | payer OTHER ==
[2021-03-23 14:40] LABS: HEMOGLOBIN A1c 5.1 %
[2021-03-23 14:44] LABS: ALT/SGPT 24 U/L (12-78); BILIRUBIN,TOTAL 0.9 MG/DL (0.2-1.0); BLOOD UREA NITROGEN 14 MG/DL (7-18); CALCIUM LEVEL 9.2 MG/DL (8.5-10.1); CARBON DIOXIDE LEVEL 30 MEQ/L (21-32); CHLORIDE LEVEL 109 MEQ/L (98-107); CREATININE FOR GFR 0.68 MG/DL (0.55-1.30); FERRITIN 10 NG/ML (8-252); GLOMERULAR FILTRATION RATE > 60.0 (>60); GLUCOSE, FASTING 75 MG/DL (70-100); IRON (FE) 60 UG/DL (50-170); MAGNESIUM LEVEL 2.1 MG/DL (1.8-2.4); PERCENT SATURATION 14.7 % (13.2-45.0); PHOSPHORUS LEVEL 3.7 MG/DL (2.5-4.9); POTASSIUM SERUM 4.2 MEQ/L (3.5-5.1); SODIUM LEVEL 144 MEQ/L (136-145); TOTAL IRON BINDING CAPACITY 407 UG/DL (250-450); TOTAL PROTEIN 6.8 GM/DL (6.4-8.2)
[2021-03-23 14:52] LABS: TOTAL 25(OH) VITAMIN D 34.8 NG/ML (30.0-100.0); VITAMIN B12 LEVEL 328 PG/ML (247-911)
[2021-03-23 15:55] LABS: BASO # 0.1 10^3/uL (0.0-0.2); BASO % 1.1 % (0.0-1.0); EOS # 0.1 10^3/uL (0.0-0.5); EOS % 1.1 % (0.0-3.0); HEMATOCRIT 40.9 % (36.0-47.0); HEMOGLOBIN 13.1 g/dl (12.0-15.5); LYMPH # 2.2 10^3/uL (1.5-5.0); LYMPH % 37.9 % (24.0-44.0); MEAN CORPUSCULAR HEMOGLOBIN 28.5 pg (27.0-33.0); MEAN CORPUSCULAR VOLUME 89.1 fl (80.0-96.0); MONO # 0.5 10^3/uL (0.0-0.8); MONO % 8.5 % (2.0-8.0); NEUTROPHILS # 2.9 10^3/uL (1.5-8.5); NEUTROPHILS % 51.2 % (36.0-66.0); PLATELET COUNT, AUTOMATED 239 10^3/uL (150-450); RED BLOOD COUNT 4.59 10^6/uL (4.00-5.40); WHITE BLOOD COUNT 5.7 10^3/uL (4.0-10.0)
== END ==
LOC: M LAB 12:48
PROVIDERS: ATTEND Surgery
DX: K91.2 Postsurgical malabsorption, not elsewhere classified (principal); E55.9 Vitamin D deficiency, unspecified; Z98.84 Bariatric surgery status; Z86.39 Personal history of other endocrine, nutritional and metabolic disease

== ENCOUNTER → 2021-09-17 | Outpatient (CLI) | payer OTHER | LOC: M LABSMTC 13:12 | PROVIDERS: ATTEND Pediatrics | DX: Z11.52 Encounter for screening for COVID-19 (principal) | CPT/HCPCS: C9803; U0003 ==

== ENCOUNTER → 2021-12-09 | Outpatient (REF) | payer OTHER | LOC: M LAB REF 16:17 | PROVIDERS: ATTEND Physician Assistant | DX: R50.9 Fever, unspecified (principal) ==

== ENCOUNTER → 2022-01-24 | Outpatient (CLI) | payer OTHER ==
[2022-01-24 11:39] LABS: HCG, SERUM QUALITATIVE NEGATIVE (NEGATIVE)
== END ==
LOC: M PLALAB 10:19
PROVIDERS: ATTEND Obstetrics & Gynecology
DX: Z32.01 Encounter for pregnancy test, result positive (principal)

== ENCOUNTER → 2022-03-18 | Outpatient (REF) | payer OTHER ==
[2022-03-18 17:18] LABS: APPEARANCE, URINE HAZY (CLEAR); BACTERIA, URINE AUTO NEGATIVE (NEGATIVE); BILIRUBIN, URINE AUTO NEGATIVE (NEGATIVE); BLOOD, URINE BLOOD NEGATIVE (NEGATIVE); CALCIUM OXALATE CRYSTALS SMALL; COLOR, URINE YELLOW (YELLOW); GLUCOSE, URINE (UA) AUTO NEGATIVE (NEGATIVE); KETONE, URINE AUTO NEGATIVE (NEGATIVE); LEUKOCYTE ESTERASE, URINE AUTO NEGATIVE (NEGATIVE); MUCUS, URINE SMALL (NEGATIVE); NITRITE, URINE AUTO NEGATIVE (NEGATIVE); PROTEIN, URINE AUTO NEGATIVE (NEGATIVE); RBC, URINE AUTO 0 /HPF (0-3); SPECIFIC GRAVITY URINE AUTO 1.023 (1.002-1.035); SQUAMOUS EPITHELIAL CELL UR AU 3 /HPF (0-6); WBC, URINE AUTO 0 /HPF (0-3)
== END ==
LOC: M LAB REF 16:11
PROVIDERS: ATTEND Physician Assistant Medical
DX: R10.2 Pelvic and perineal pain (principal)